=== PATIENT | female | born 1985 | race Caucasian/White ===

== ENCOUNTER 2020-09-07 21:08 | Emergency (ER) | payer MEDICAID, SELFPAY ==
[2020-09-07 21:24] VITALS: BP 153/102; PULSE 89; RESP 17; TEMP 37.2; O2SAT 98; BMI 27.4
--- NOTE | 2020-09-07 23:35 | XRR_ITS ---
PROCEDURE INFORMATION: Exam: XR Chest Exam date and time: 09/07/2020 11:35 PM Age: 35 years old Clinical indication: Pain; On breathing; Additional info: Cp TECHNIQUE: Imaging protocol: XR of the chest. Views: 1 view. COMPARISON: No relevant prior studies available. FINDINGS: Lungs: Unremarkable. No consolidation. Pleural spaces: Unremarkable. No pleural effusion. No pneumothorax. Heart/Mediastinum: Unremarkable. No cardiomegaly. Bones/joints: Unremarkable. XR/XR chest 1V portable [id number] IMPRESSION: No acute findings.
--- NOTE | 2020-09-07 23:36 | ECG_ITS ---
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 Measurements Intervals [place] Rate: 79 P: 56 KS: 120 QRS: 63 QRSD: 113 T: 40 QT: 378 QTc: 435 Interpretive Statements SINUS RHYTHM INCOMPLETE RIGHT BUNDLE BRANCH BLOCK [90+ ms QRS DURATION, TERMINAL R IN V1/V2, 40+ ms S IN I/aVL/V4/V5/V6] No previous ECG available for comparison Electronically Signed On 09-08-2020 15:01:13 CDT by Lewis Caldwell M.D. [email or web address] to (do) [email or web address] [id number]
[2020-09-08 00:43] LABS: Glucose Urine UA Norm (Normal); Ketones Urine Negative (Negative); Protein Urine Neg (Negative); Urine Appearance SL Hazy (CLEAR); Urine Color Yellow (Yellow); pH Urine 5 (5-7)
[2020-09-08 00:44] LABS: Add Urine Microscopic? YES; Bilirubin Urine Neg (Negative); Blood Urine Neg (Negative); Leukocyte Esterase Urine Trace (Negative); Nitrate Urine Negative (Negative); Urobilinogen Urine Norm (Negative)
--- NOTE | 2020-09-08 00:57 | W.ED.ABDPA2 ---
HPI - Abdominal Pain General: Chief Complaint: Abdominal Pain Stated Complaint: cp Time Seen by Provider: 09/07/20 23:20 History of Present Illness: HPI narrative: 35-year-old female with epigastric pain radiating into her back. She has had it for 24 hours or more. She is nauseated with the pain. She has not vomited. It seems to be worse after meals. No shortness of breath, no syncope or presyncope. The patient notes she has had a long car trip, last week some time driving back from [place]. She complains of some knee pain. MD elicited complaint: abdominal pain Pertinent past history: other Onset (ago): hour(s) Pain Consistency: constant Location: Epigastric Severity: moderate Quality: cramping and stabbing Radiation: back Migration to: no migration Exacerbating factors: eating Relieving factors: nothing Associated Symptoms: Denies bloating, change in bowel habits, GI cramping and fever(s) Treatments prior to arrival: NSAIDs Related Data: Date of Last Menstrual Period: 08/31/20 Review of Systems Const: Denies: fever(s) Eyes: Denies: change in vision ENMT: Denies: throat pain Card: Denies: chest pain or palpitations Resp: Denies: dyspnea GI: Denies: bloating, GI cramping or change in bowel habits Neuro: Reports: headache(s); Denies: numbness in extremities [facility] Female Reproductive History: Date of last menstrual period: 08/31/20 Physical Exam Const: GENERAL APPEARANCE: well developed ORIENTATION/CONSCIOUSNESS: Yes oriented to person, Yes oriented to place and Yes oriented to time HENMT: COMMON NORMALS: normocephalic, external ears normal and Normal external nose present HEAD & SCALP: normocephalic FACE & SINUS: normal facial exam NOSE: Normal external nose present and No nasal discharge present EXTERNAL EAR: Yes external ears normal THROAT: posterior oropharynx normal; no peritonsillar mass Eye: COMMON NORMALS: EOMs intact bilaterally and conjunctivae normal EYELID: eyelids normal CONJUNCTIVA: Yes conjunctivae normal Neck/C-Spine: COMMON NORMALS: full ROM GENERAL: No tracheal deviation CERVICAL SPINE: Yes normal cervical lordosis and No Cervical spine tenderness Chest: COMMONS NORMALS: normal inspection of the chest CHEST: No tenderness Resp: COMMON NORMALS: clear to auscultation bilaterally EFFORT & INSPECTION: No tachypneic, No respiratory distress, No retractions, No uses accessory muscles and No tracheal deviation AUSCULTATION: clear to auscultation bilaterally, no rhonchi, no wheezes and lung sounds not diminished Cardio: COMMON NORMALS: regular rate and regular rhythm RATE: regular rate RHYTHM: regular rhythm HEART SOUNDS: no murmurs PERIPHERAL PULSES: radial pulses present GI: INSPECTION: No abdominal distension AUSCULTATION: No Hyperactive bowel sounds present and No Hypoactive bowel sounds present PALPATION: Yes Tenderness to palpation present (GI) (Epigastric), No Guarding due to palpation present (GI) and No Rigid due to palpation PERCUSSION: no dullness to percussion and no tympanic to percussion : COMMON NORMALS: Yes no CVA tenderness BLADDER/KIDNEY EXAM: Yes no CVA tenderness Back/Pelvis: COMMON NORMALS: no CVA tenderness Neuro: SENSORIUM/ORIENTATION: Yes oriented to person, Yes oriented to place and Yes oriented to time Psych: COMMON NORMALS: mental status grossly normal Skin: COMMON NORMALS: no rashes or lesions noted GENERAL SKIN EXAM: no rashes or lesions noted Course Vital Signs: Vital signs: Vital Signs Temperature 99.0 F 09/07/20 21:24 Pulse Rate 70 09/08/20 05:13 Respiratory Rate 16 09/08/20 05:13 Blood Pressure 102/72 09/08/20 05:13 Pulse Oximetry 95 09/08/20 05:13 MDM - Abdominal Pain MDM Narrative: Medical decision making narrative: 35-year-old female with epigastric pain. White blood cell count is 11.3. Initial troponin was minimally elevated. It did not raise at 2 hours. EKG was normal sinus rhythm without any acute ST changes. Chest x-ray was normal. D-dimer, however, was 1400. CTA was ordered and is negative for pulmonary embolism or infiltrate. CT of the belly for follow-through is negative as well. She had some relief with GI cocktail. We will treat her for gastritis. Lab Data: Labs: Lab Results 09/08/20 09/08/20 09/08/20 Range/Units 00:36 01:15 01:15 WBC 11.3 H (4.0-10.0) 10^3/ uL RBC 5.01 (4.1-5.3) 10^6/u L Hgb 14.6 (11.5-15.3) g/dL Hct 42.6 (37.0-47.0) % MCV 85.0 (81-99) fL MCH 29.1 (28.0-34.0) pg MCHC 34.3 (30.0-36.0) g/dL RDW 11.5 L (12.1-15.1) % Plt Count 363 (130-400) 10^3/c mm MPV 9.3 (7.4-10.4) fL Neut % (Auto) 48.3 % Lymph % (Auto) 38.5 % [place] % (Auto) 5.1 % Eos % (Auto) 7.1 % Baso % (Auto) 0.6 % Neut # (Auto) 5.46 (1.8-7.7) 10^3/u L Lymph # (Auto) 4.4 (0.8-4.8) 10^3/u L [place] # (Auto) 0.6 (0.2-0.9) 10^3/u L Eos # (Auto) 0.8 (0.0-0.8) 10^3/u L Baso # (Auto) 0.1 (0.0-0.1) 10^3/u L Nucleated RBC % (a uto) 0 % Nucleated RBCs # 0.0 /100WBC D-Dimer 1.41 H (0-0.59) ug/mIFE U Sodium (136-145) mmol/L Potassium (3.5-5.1) mmol/L Chloride (98-107) mmol/L Carbon Dioxide (22-29) mmol/L Anion Gap (5-19) BUN (6-20) mg/dL Creatinine (0.5-0.9) mg/dL GFR Calculation (90-130) mL/min Glucose (65-115) mg/dL Calculated Osmolal ity (285-295) mOsm/k g Calcium (8.5-10.5) mg/dL Total Bilirubin (0.15-1.2) mg/dL AST (0-32) U/L ALT (0-33) U/L Alkaline Phosphata se (35-105) IU/L Creatine Kinase (26-192) U/L Troponin T Gen 5 n g/L (0-10) ng/L C-Reactive Protein (0.0-4.9) mg/L Total Protein (6.6-8.7) g/dL Albumin (3.5-5.2) g/dL Globulin (1.3-4.6) g/dL Lipase (13-60) U/L HCG, Qual (Negative) Urine Color Yellow (Yellow) Urine Appearance Sl hazy (CLEAR) Urine pH 5 (5-7) Ur Specific Gravit y 1.020 (1.005-1.030) Urine Protein Neg (Negative) Urine Glucose (UA) Norm (Normal) Urine Ketones Negative (Negative) Urine Blood Neg (Negative) Urine Nitrate Negative (Negative) Urine Bilirubin Neg (Negative) Urine Urobilinogen Norm (Negative) mg/dL Ur Leukocyte Almita ase Trace H (Negative) Urine RBC 0-4 H (0-2) /hpf Urine WBC 0-4 H (0-5) /hpf Ur Squamous Epith Cells 25-40 H (0-5) /hpf Amorphous Sediment Not Reportable Urine Bacteria Trace (NONE) /hpf 09/08/20 09/08/20 09/08/20 Range/Units 01:15 01:15 01:15 WBC (4.0-10.0) 10^3/ uL RBC (4.1-5.3) 10^6/u L Hgb (11.5-15.3) g/dL Hct (37.0-47.0) % MCV (81-99) fL MCH (28.0-34.0) pg MCHC (30.0-36.0) g/dL RDW (12.1-15.1) % Plt Count (130-400) 10^3/c mm MPV (7.4-10.4) fL Neut % (Auto) % Lymph % (Auto) % [place] % (Auto) % Eos % (Auto) % Baso % (Auto) % Neut # (Auto) (1.8-7.7) 10^3/u L Lymph # (Auto) (0.8-4.8) 10^3/u L [place] # (Auto) (0.2-0.9) 10^3/u L Eos # (Auto) (0.0-0.8) 10^3/u L Baso # (Auto) (0.0-0.1) 10^3/u L Nucleated RBC % (a uto) % Nucleated RBCs # /100WBC D-Dimer (0-0.59) ug/mIFE U Sodium 138 (136-145) mmol/L Potassium 4.3 (3.5-5.1) mmol/L Chloride 103 (98-107) mmol/L Carbon Dioxide 22 (22-29) mmol/L Anion Gap 17.3 (5-19) BUN 11 (6-20) mg/dL Creatinine 0.8 (0.5-0.9) mg/dL GFR Calculation 82.6 L (90-130) mL/min Glucose 83 (65-115) mg/dL Calculated Osmolal ity 285 (285-295) mOsm/k g Calcium 9.3 (8.5-10.5) mg/dL Total Bilirubin 0.2 (0.15-1.2) mg/dL AST 18 (0-32) U/L ALT 26 (0-33) U/L Alkaline Phosphata se 53 (35-105) IU/L Creatine Kinase 59 (26-192) U/L Troponin T Gen 5 n g/L 12 H (0-10) ng/L C-Reactive Protein 1.0 (0.0-4.9) mg/L Total Protein 6.9 (6.6-8.7) g/dL Albumin 4.4 (3.5-5.2) g/dL Globulin 2.5 (1.3-4.6) g/dL Lipase 52 (13-60) U/L HCG, Qual Negative (Negative) Urine Color (Yellow) Urine Appearance (CLEAR) Urine pH (5-7) Ur Specific Gravit y (1.005-1.030) Urine Protein (Negative) Urine Glucose (UA) (Normal) Urine Ketones (Negative) Urine Blood (Negative) Urine Nitrate (Negative) Urine Bilirubin (Negative) Urine Urobilinogen (Negative) mg/dL Ur Leukocyte Almita ase (Negative) Urine RBC (0-2) /hpf Urine WBC (0-5) /hpf Ur Squamous Epith Cells (0-5) /hpf Amorphous Sediment Urine Bacteria (NONE) /hpf 09/08/20 Range/Units 03:57 WBC (4.0-10.0) 10^3/ uL RBC (4.1-5.3) 10^6/u L Hgb (11.5-15.3) g/dL Hct (37.0-47.0) % MCV (81-99) fL MCH (28.0-34.0) pg MCHC (30.0-36.0) g/dL RDW (12.1-15.1) % Plt Count (130-400) 10^3/c mm MPV (7.4-10.4) fL Neut % (Auto) % Lymph % (Auto) % [place] % (Auto) % Eos % (Auto) % Baso % (Auto) % Neut # (Auto) (1.8-7.7) 10^3/u L Lymph # (Auto) (0.8-4.8) 10^3/u L [place] # (Auto) (0.2-0.9) 10^3/u L Eos # (Auto) (0.0-0.8) 10^3/u L Baso # (Auto) (0.0-0.1) 10^3/u L Nucleated RBC % (a uto) % Nucleated RBCs # /100WBC D-Dimer (0-0.59) ug/mIFE U Sodium (136-145) mmol/L Potassium (3.5-5.1) mmol/L Chloride (98-107) mmol/L Carbon Dioxide (22-29) mmol/L Anion Gap (5-19) BUN (6-20) mg/dL Creatinine (0.5-0.9) mg/dL GFR Calculation (90-130) mL/min Glucose (65-115) mg/dL Calculated Osmolal ity (285-295) mOsm/k g Calcium (8.5-10.5) mg/dL Total Bilirubin (0.15-1.2) mg/dL AST (0-32) U/L ALT (0-33) U/L Alkaline Phosphata se (35-105) IU/L Creatine Kinase (26-192) U/L Troponin T Gen 5 n g/L 11 H (0-10) ng/L C-Reactive Protein (0.0-4.9) mg/L Total Protein (6.6-8.7) g/dL Albumin (3.5-5.2) g/dL Globulin (1.3-4.6) g/dL Lipase (13-60) U/L HCG, Qual (Negative) Urine Color (Yellow) Urine Appearance (CLEAR) Urine pH (5-7) Ur Specific Gravit y (1.005-1.030) Urine Protein (Negative) Urine Glucose (UA) (Normal) Urine Ketones (Negative) Urine Blood (Negative) Urine Nitrate (Negative) Urine Bilirubin (Negative) Urine Urobilinogen (Negative) mg/dL Ur Leukocyte Almita ase (Negative) Urine RBC (0-2) /hpf Urine WBC (0-5) /hpf Ur Squamous Epith Cells (0-5) /hpf Amorphous Sediment Urine Bacteria (NONE) /hpf Discharge Plan Discharge Patient Disposition: Home Clinical Impression: Gastritis Qualifiers: Gastritis type: unspecified gastritis Chronicity: acute Gastritis bleeding: without bleeding Qualified Code(s): K29.00 - Acute gastritis without bleeding Condition: Stable Prescriptions: New Zofran 4 mg tablet 4 mg PO Q6H PRN (Reason: nausea and vomiting) Qty: 10 RF: 0 Prevacid 30 mg capsule,delayed release(DR/EC) 30 mg PO DAILY Qty: 30 RF: 0 Discharge Orders: Discharge ED (Routine); Ordered 09/08/20 Ordered By: Shane Garcia Referrals: Robbin Valente MD [Primary Care Provider] - 1-3 days Patient Instructions: Gastritis (ED) Activity Restrictions/Additional Instructions: Return for fever greater than 100, vomiting liquids or medications, worsening pain despite treatment, other concerning symptoms peer Coding Level of Care Code ED Attending Anesthesiologist for Chg Fwd Exam Comprehensive
[2020-09-08 00:58] LABS: RBC Urine 0-4 /hpf (0-2); Squamous Epithelial Cell Urine 25-40 /hpf (0-5); WBC Urine 0-4 /hpf (0-5)
[2020-09-08 00:59] LABS: Add Urine Culture? No; Bacteria Urine TRACE /hpf
[2020-09-08 01:27] VITALS: BP 108/85; PULSE 66; RESP 22; O2SAT 99
[2020-09-08] MEDS: lidocaine 2% viscous 15 ML, aluminum-mag hydrox-simethicon 30 ML, sucralfate oral liq 1 GM PO (01:35)
[2020-09-08] MEDS: ondansetron 2 mg/ML SDV 2 mL 4 MG IVP ×2 (01:36→04:25)
[2020-09-08] MEDS: sodium chloride 0.9% 1,000 ML 999 ML IV (01:36)
[2020-09-08 01:48] LABS: Basophils # 0.1 10^3/uL (0.0-0.1); Basophils % 0.6 %; Eosinophils # 0.8 10^3/uL (0.0-0.8); Eosinophils % 7.1 %; Hematocrit 42.6 % (37.0-47.0); Hemoglobin 14.6 g/dL (11.5-15.3); Lymphocytes # 4.4 10^3/uL (0.8-4.8); Lymphocytes % 38.5 %; Mean Corpuscular HGB Conc 34.3 g/dL (30.0-36.0); Mean Corpuscular Hemoglobin 29.1 pg (28.0-34.0); Mean Platelet Volume 9.3 fL (7.4-10.4); Monocytes # 0.6 10^3/uL (0.2-0.9); Monocytes % 5.1 %; Neutrophils # 5.46 10^3/uL (1.8-7.7); Neutrophils % 48.3 %; Nucleated Red Blood Cells % 0 %; Platelet Count 363 10^3/cmm (130-400); Red Blood Count 5.01 10^6/uL (4.1-5.3); Red Cell Distribution Width 11.5 % (12.1-15.1); White Blood Count 11.3 10^3/uL (4.0-10.0)
[2020-09-08 01:57] LABS: HCG, Serum Qual Negative (Negative)
[2020-09-08 02:00] VITALS: BP 105/78; PULSE 63; RESP 18; O2SAT 97
[2020-09-08 02:02] LABS: D Dimer 1.41 ug/mIFEU (0-0.59)
[2020-09-08 02:09] LABS: Troponin T (5th) Once 12 ng/L (0-10)
--- NOTE | 2020-09-08 02:29 | CTR_ITS ---
PROCEDURE INFORMATION: Exam: CTA Chest With Contrast Exam date and time: 09/08/2020 2:29 AM Age: 35 years old Clinical indication: Abdominal pain; Epigastric; Prior surgery; Surgery date: 6+ months; Surgery type: Appy; Additional info: Epigastric/chest pain TECHNIQUE: Imaging protocol: Computed tomographic angiography of the chest with contrast. 3D rendering (Not supervised by radiologist): MIP and/or 3D reconstructed images were created by the technologist. Radiation optimization: All CT scans at this facility use at least one of these dose optimization techniques: automated exposure control; mA and/or kV adjustment per patient size (includes targeted exams where dose is matched to clinical indication); or iterative reconstruction. Contrast material: OMNI 350; Contrast volume: 95 ml; Contrast route: INTRAVENOUS (IV); COMPARISON: CR (CHEST, ) 09/07/2020 11:43 PM RADIATION DOSE METRICS: Total DLP (mGy-cm): 1489.22 FINDINGS: Pulmonary arteries: No pulmonary embolism. Aorta: No aortic dissection. Lungs: Unremarkable. No consolidation. No masses. Pleural spaces: Unremarkable. No pneumothorax. No pleural effusion. Heart: Unremarkable. No cardiomegaly. No pericardial effusion. Mediastinal space: Thymic remnant, normal for age. Lymph nodes: Unremarkable. No enlarged lymph nodes. Bones/joints: Unremarkable. No acute fracture. Soft tissues: Unremarkable. IMPRESSION: No pulmonary embolism. PROCEDURE INFORMATION: Exam: CT Abdomen And Pelvis With Contrast Exam date and time: 09/08/2020 2:29 AM Age: 35 years old Clinical indication: Abdominal pain; Epigastric; Prior surgery; Surgery date: 6+ months; Surgery type: Appy; Additional info: Epigastric/chest pain TECHNIQUE: Imaging protocol: Computed tomography of the abdomen and pelvis with contrast. Radiation optimization: All CT scans at this facility use at least one of these dose optimization techniques: automated exposure control; mA and/or kV adjustment per patient size (includes targeted exams where dose is matched to clinical indication); or iterative reconstruction. Contrast material: OMNI 350; Contrast volume: 95 ml; Contrast route: INTRAVENOUS (IV); COMPARISON: CR (CHEST, ) 09/07/2020 11:43 PM RADIATION DOSE METRICS: Total DLP (mGy-cm): 1489.22 FINDINGS: Lungs: The lung bases are clear. No effusion Liver: Normal. No mass. Gallbladder and bile ducts: No wall thickening, pericholecystic fluid or stones. Pancreas: Normal. No ductal dilation. Spleen: Normal. No splenomegaly. Adrenal glands: Normal. No mass. Kidneys and ureters: Normal. No hydronephrosis. Stomach and bowel: Unremarkable. No obstruction. No mucosal thickening. Appendix: Appendix has been removed. Intraperitoneal space: Unremarkable. No free air. No significant fluid collection. Vasculature: Unremarkable. No abdominal aortic aneurysm. Lymph nodes: Unremarkable. No enlarged lymph nodes. Urinary bladder: Unremarkable as visualized. Reproductive: Unremarkable as visualized. Bones/joints: Unremarkable. No acute fracture. Soft tissues: Unremarkable. CT/CT angio chest w abd pel wo/w IMPRESSION: No cause for acute pain is identified. Radiation Dose CTDIVOL = (mGy): DLP = 1489.22~1489.22 (mGy-cm)
[2020-09-08 02:35] LABS: Alanine Aminotransferase 26 U/L (0-33); Albumin Level 4.4 g/dL (3.5-5.2); Alkaline Phosphatase 53 IU/L (35-105); Anion Gap 17.3 (5-19); Aspartate Amino Transferase 18 U/L (0-32); Blood Urea Nitrogen 11 mg/dL (6-20); Calcium 9.3 mg/dL (8.5-10.5); Carbon Dioxide 22 mmol/L (22-29); Chloride 103 mmol/L (98-107); Creatine Phosphokinase 59 U/L (26-192); Globulin 2.5 g/dL (1.3-4.6); Glomerular Filtration Rate 82.6 mL/min (90-130); Glucose 83 mg/dL (65-115); Lipase 52 U/L (13-60); Osmolality Calculated 285 mOsm/kg (285-295); Potassium 4.3 mmol/L (3.5-5.1); Sodium 138 mmol/L (136-145); Total Bilirubin 0.2 mg/dL (0.15-1.2); Total Protein 6.9 g/dL (6.6-8.7)
[2020-09-08] MEDS: iohexol 350 mg/mL 100 mL Btl IV (02:56)
[2020-09-08 04:30] LABS: Troponin T (5th) Once 11 ng/L (0-10)
[2020-09-08 04:35] VITALS: RESP 18; O2SAT 99
[2020-09-08] MEDS: morphine 4 mg/mL SDV 1 mL IVP (04:35)
[2020-09-08 05:13] VITALS: BP 102/72; PULSE 70; RESP 16; O2SAT 95
[2020-09-08 06:08] VITALS: BP 102/72; PULSE 71; RESP 14; O2SAT 96
== END 2020-09-08 06:00 | disposition home or self-care (01) ==
PROVIDERS: Emergency Provider Emergency Medicine; PCP Family Medicine
DX: K29.00 Acute gastritis without bleeding (principal)
CPT/HCPCS: 36415; 71045; 71275; 74178; 80053; 81001; 82550; 83690; 84484; 84703; 85025; 85378; 86140; 93005; 96361; 96374; 96375; 96376; 99284; J2270; J2405; J7030; Q9967

== ENCOUNTER → 2021-02-03 11:48 | Outpatient (BNVA) | payer MEDICAID, SELFPAY | PROVIDERS: PCP Family Medicine; Visit Provider Registered Nurse Neonatal Intensive Care | DX: Z20.822 Contact with and (suspected) exposure to COVID-19 (principal) | CPT/HCPCS: 87635 ==

== ENCOUNTER → 2021-03-27 18:34 | Outpatient (BNVA) | payer MEDICAID, SELFPAY | PROVIDERS: PCP Family Medicine; Visit Provider Nurse Practitioner | DX: R39.9 Unspecified symptoms and signs involving the genitourinary system (principal) | CPT/HCPCS: 81000 ==

== ENCOUNTER → 2021-09-19 08:51 | Outpatient (BNVA) | payer MEDICAID, SELFPAY | PROVIDERS: PCP Family Medicine; Visit Provider Obstetrics & Gynecology | DX: Z01.419 Encounter for gynecological examination (general) (routine) without abnormal findings (principal) | CPT/HCPCS: 87624 ==

== ENCOUNTER 2021-11-12 05:32 | Day surgery (SDC) | payer MEDICAID, SELFPAY ==
[2021-11-12] VITALS (7 sets, daily range): BP systolic 106–145; BP diastolic 67–86; PULSE 64–88; RESP 16–18; TEMP 36.1–36.2; O2SAT 95–100
--- NOTE | 2021-11-12 06:15 | ANES.PREANE2 ---
Pre-Anesthetic Assessment Height/Weight: Height 1.57 m Weight 68.039 kg Temp Pulse Resp BP Pulse Ox O2 Del Method 97.2 F L 80 18 128/86 98 11/12/21 06:00 11/12/21 06:00 11/12/21 06:00 11/12/21 06:00 11/12/21 06:00 11/12/21 06:07 Preop Diagnosis: desires sterilization Operation Date: 11/12/21 07:00 Proposed Procedures p Laparoscopic Salpingectomy 40862,Z30.2(Bilateral) - Melinda Stapleton MD Familial anesthetic complications: None Was Beta Saranya taken within 24 hours: N/A Was Clonidine taken within 24 hours: N/A Last intake: Intake Last Liquid Date 11/11/21 Last Liquid Time 19:00 Last Solid Date 11/11/21 Last Solid Time 19:00 Social Tobacco and No alcohol Exam alert, oriented x 3, clear to auscultation bilaterally and regular rate & rhythm Airway Submandibular: within normal limits Cervical ROM: within normal limits Mallampati: Class I Dentition: full History/ROS No significant complaints Pulmonary Allergic rhinitis CV/HEM None reported METS > 4 Uterine prolapse Hepatic None reported GI Gastroesophageal Reflux Disease (Occasional reflux on empty stomach ) Metabolic None reported Musc/skel None reported Neuropsych None reported Anesthetic Plan ASA status: 2 Anesthesia: Anesthesia Evaluation and General Other: We discussed risk and benefits of general anesthesia including PONV, sore throat (sometimes severe), corneal abrasion, positioning and peripheral nerve injuries, life threatening allergic reaction, post operative ICU admission requiring prolonged intubation, stroke, heart attack, , and rare incidences of recall. Patient consents to proceed with general anesthesia. Pre op scopolamine, diphenhydramine, famotidine ordered. Risk of > 500 ml blood loss (7ml/kg in children): No Medications/Allergies Home Medications Medication Instructions Recorded Confirmed Last Taken Type fluticasone propionate 50 2 spray intranasal BID nasal 09/26/21 11/11/21 Unknown Rx mcg/actuation nasal congestion #16 grams spray,suspension loratadine 10 mg tablet 10 mg PO DAILY allergy symptoms 09/26/21 11/11/21 Unknown Rx #30 tabs Allergies Allergy/AdvReac Type Severity Reaction Status Date / Time morphine Allergy Mild ADR-Anxiety Verified 11/08/21 08:00 Penicillins Allergy ALGY-Rash Verified 11/08/21 08:00 [facility] Anesthesia Medical History Allergic rhinitis due to allergen No pertinent past medical history Surgical History History of appendectomy History of tonsillectomy Family History Grandmother Breast cancer Paternal Grandfather Heart disease Maternal Hypercholesteremia Denies family history of Colon cancer Ovarian cancer Uterine cancer Thyroid disease Social History Smoking and tobacco status: current every day smoker Female Reproductive History Date of last menstrual period: 10/27/21 Data Anesthesia Cardiac Studies: No Data to Display
[2021-11-12] MEDS: sodium chloride 0.9% 1,000 ML 30 ML IV (06:30)
[2021-11-12] MEDS: acetaminophen 1,000 MG/100 ML PIGGYBACK 400 MG IV (06:32)
[2021-11-12] MEDS: phenazopyridine 100 mg Tablet 200 MG PO (06:32)
[2021-11-12] MEDS: gabapentin 300 mg Capsule PO (06:33)
[2021-11-12] MEDS: CELEcoxib 200 mg Capsule 400 MG PO (06:33)
[2021-11-12 06:42] LABS: OR HCG Qualitative Urine Negative (Negative)
[2021-11-12] MEDS: famotidine 20 mg/2 mL INJ IVP (06:54)
[2021-11-12] MEDS: diphenhydrAMINE 50 mg/mL SDV 1mL 12.5 MG IVP (06:56)
[2021-11-12] MEDS: scopolamine 1.5 Patch 1 PATCH TRANSDERMA (06:57)
--- NOTE | 2021-11-12 07:09 | W.PM.OPSUD ---
Surgery/Procedure H&P Update DATE OF PROCEDURE: November 12, 2021 DATE H&P PERFORMED: 11/08/21 H&P UPDATE INFORMATION: I have reviewed H&P completed within last 30 days, I have examined patient prior to procedure and No changes to prior documentation PREOP DIAGNOSIS: desires sterilization PLANNED PROCEDURE: Operation Date: 11/12/21 07:00 Proposed Procedures p Laparoscopic Salpingectomy 66008,Z30.2(Bilateral) - Melinda Stapleton MD Related Problem List Diagnoses (1) Sterilization consult:
[2021-11-12] MEDS: ceFAZolin 2,000 MG in sodium chloride 0.9% (plus) 50 ML 100 MG IV (07:12)
--- NOTE | 2021-11-12 08:42 | PM.OP ---
Operative Report Date of procedure: November 12, 2021 Pre-op diagnosis: Preop Diagnosis desires sterilization Post-op diagnosis: same Post-op findings: normal appearing uterus, tubes and ovaries. Several small paratubal cysts on right fallopian tube Procedure done: laparoscopic bilateral salpingectomy Specimens removed/disposition: bilateral fallopian tubes sent to pathology Surgeon: Melinda Stapleton Anesthesia: General Estimated blood loss (mL): 5 IV fluids (mL): 700 Urine output (mL): 150 Complications: none Findings: 7 week sized uterus with normal appearing tubes and ovaries Procedure: The patient was taken to the operating room where general anesthesia was administered and found to be adequate. She was prepped and draped in the normal sterile fashion in the dorsal lithotomy position in [facility]. A Tom catheter was placed. A weighted speculum was placed into the vagina and the anterior lip of the cervix grasped with a single-tooth tenaculum. A ZUMI uterine manipulator was placed. The gloves were changed and attention was turned to the laparoscopic portion of the case. A 5 mm infraumbilical incision was made. The 5 mm trocar was placed using the easy view trocar. Intra-abdominal placement was confirmed and CO2 gas was used to insufflate the abdomen. Using direct visualization and illumination of the abdominal wall, two 5 mm incisions were made low and lateral. One on the left and one on the right. The 5mm trochars were then placed under direct visualization. Using the uterine manipulator and the grasper, the fallopian tubes were identified. Using the laparoscopic cautery, the fallopian tube was clamped cauterized and cut. First on the right, then on the left. There was excellent hemostasis post removal of the bilateral tubes. Pictures were taken. All instruments were removed. The abdomen was desufflated. The incisions were closed with 4-0 Vicryl. 10 ml of 1/2 percent bupivicaine was used around the three incisions. The patient tolerated the procedure well. Sponge lap and needle counts were correct x3. She was taken to the recovery room in stable condition.
--- NOTE | 2021-11-12 09:06 | PM.DCS ---
Discharge Providers Date of Admission: 11/12/21 Date of Discharge: November 12, 2021 Attending Provider at Discharge: Melinda Stapleton MD Primary Care Provider: Robbin Valente MD Diagnoses at Discharge Discharge Diagnosis (1) Sterilization consult: Status: Acute Hospital Course Hospital Course The patient was admitted for surgery. She did well and was discharged home in stable condition. She was given #30 norco for pain management. Physical Exam Urinary Catheter Management: Tom: Cath Placed During This Visit: yes, but has since been removed by the nurse Urinary Catheter Date of Insertion: 11/12/21 Urinary Catheter Time of Insertion: 07:35 Date Urinary Catheter Removed: 11/12/21 Time Urinary Catheter Discontinued: 08:30 Discharge Data Studies Completed and Pending Pending at discharge Category Date Time Status ES surgery / GI images Routine Exams 11/12/21 06:21 Taken Urine Culture Routine Lab 11/12/21 08:00 Received Pathology: Surgical [PTH] Routine Pth 11/12/21 08:44 Ordered Laboratory Results Urine HCG, Qual Negative (Negative) 11/12/21 06:40 Vitals Last Vital Signs Temp 97.1 F L 11/12/21 09:03 Pulse 78 11/12/21 09:03 Resp 18 11/12/21 09:03 BP 106/75 11/12/21 09:03 Pulse Ox 98 11/12/21 09:03 O2 Del Method 11/12/21 09:03 O2 Flow Rate 8 11/12/21 08:45 Discharge Plan Discharge Patient Disposition: Home Condition: Stable Prescriptions: New hydrocodone-acetaminophen 5-325 mg tablet 1 tab PO Q4H Qty: 30 0RF Continued loratadine 10 mg tablet 10 mg PO DAILY Qty: 30 0RF fluticasone propionate 50 mcg/actuation spray,suspension 2 spray intranasal BID Qty: 16 1RF Rx Instructions: administer into each nostril Discharge Orders: Discharge Order (Routine); Ordered 11/12/21 Ordered By: Melinda Stapleton Discharge Attestations Time Spent in Discharge Care*: less than 30 min Quality Metrics Clinical Quality Measures [ No reported AMI, CVA or VTE this stay] Coding Level of Care Code Acute Chg FW DC note Diagnoses Sterilization consult Z30.09
[2021-11-12] MEDS: ondansetron 2 mg/ML SDV 2 mL 4 MG IVP (09:30)
--- NOTE | 2021-11-12 10:35 | ANE.PACU2 ---
Inpatient post-anesthesia follow up: Airway intact: Yes Vital signs: Temperature 97.1 F Pulse Rate 64 Respiratory Rate 18 Blood Pressure 110/69 Pulse Oximetry 98 Oxygen Delivery Me thod Room Air Oxygen Flow Rate 8 Fraction of Inspir ed Oxygen Hydration adequate: Yes Nausea and vomiting: No Pain level: 1 Mental status: Baseline
== END 2021-11-12 09:50 | disposition home or self-care (01) ==
PROVIDERS: Anesthesiology; PCP Family Medicine; Visit Provider Obstetrics & Gynecology
PROC: (CPT 58661; principal; 2021-11-12 07:00)
DX: Z30.2 Encounter for sterilization (principal); K21.9 Gastro-esophageal reflux disease without esophagitis; F17.210 Nicotine dependence, cigarettes, uncomplicated
CPT/HCPCS: 58661; 84703; 87086; 88302; J0330; J1100; J1200; J1885; J2250; J2405; J2704; J2710; J3010; J3490; J7030

== ENCOUNTER → 2022-02-05 11:31 | Outpatient (BNVA) | payer MEDICAID, SELFPAY | PROVIDERS: PCP Family Medicine; Visit Provider Clinical Nurse Specialist Adult Health | DX: J06.9 Acute upper respiratory infection, unspecified (principal); J20.6 Acute bronchitis due to rhinovirus | CPT/HCPCS: 87400 ==

== ENCOUNTER 2022-05-02 10:06 | Outpatient (CLI) | payer MEDICAID, SELFPAY ==
--- NOTE | 2022-05-02 10:28 | XR_ITS ---
WS: [id number] XR shoulder RT min 2V* [id number] REASON FOR EXAM: Right shoulder pain FINDINGS: No fracture or focal bone lesion. Mild narrowing of the acromioclavicular joint with mild subchondral sclerosis. Glenohumeral joint is intact without significant narrowing. No soft tissue abnormality. XR/XR shoulder RT min 2V* [id number] IMPRESSION: Mild osteoarthritis of the acromioclavicular joint.
--- NOTE | 2022-05-02 10:28 | XR_ITS ---
WS: [id number] XR chest 2V* [id number] REASON FOR EXAM: Cough FINDINGS: The heart and mediastinum are within normal limits. The heart and mediastinum are within normal limits. No active pulmonary parenchymal or pleural disease is identified. Minimal change of degenerative spondylosis in the mid and lower thoracic spine. XR/XR chest 2V* [id number] IMPRESSION: No acute chest abnormality.
== END 2022-05-02 10:07 | disposition home or self-care (01) ==
LOC: RAD 10:10
PROVIDERS: PCP Family Medicine; Visit Provider Family Medicine
DX: Z51.81 Encounter for therapeutic drug level monitoring (principal); R05.9 Cough, unspecified; M25.511 Pain in right shoulder; M19.011 Primary osteoarthritis, right shoulder; Z13.220 Encounter for screening for lipoid disorders; Z01.419 Encounter for gynecological examination (general) (routine) without abnormal findings; R53.83 Other fatigue; R53.81 Other malaise
CPT/HCPCS: 71046; 73030; 80053; 80061; 84443; 85025; 87624

== ENCOUNTER 2022-07-17 11:47 | Emergency (ER) | payer MEDICAID, SELFPAY ==
[2022-07-17 12:13] VITALS: BP 121/87; PULSE 81; RESP 18; TEMP 36.2; O2SAT 99; BMI 32.1
--- NOTE | 2022-07-17 12:49 | W.ED.HA ---
HPI - Headache General: Chief Complaint: Headache Stated Complaint: Headache Time Seen by Provider: 07/17/22 12:25 Source: patient Mode of arrival: ambulatory Limitations: no limitations History of Present Illness: Patient is a nice 37-year-old female presents to ED today with complaint of headache. Patient states she first noticed the headache about 1.5 weeks ago after returning from [place]. Patient states when she returned she had also noticed some mild swelling to both of her legs that she attributed to possibly the long plane ride. This symptom has fully resolved. She states her headache is intermittent and seems to be located to her left occipital region that seems to radiate into her left retro-orbital region. No visual loss or visual changes. She states she does have a history of headaches/migraines but has not had one in many years and states this feels different. She is not having any neck pain or neck stiffness. No fevers. She has no neurologic complaints or deficits. She denies any poor or abnormal food exposures while in [place]. She denies swimming in dirty or stagnant ross. MD elicited complaint: headache Onset (ago): week(s) (1.5 weeks ago) Onset description: gradually Location: left and occipital Severity: moderate Quality & Timing: sharp Exacerbating factors: none Relieving factors: nothing Associated symptoms: Deny chest pain, confusion, fever(s), lightheadedness, malaise, nausea, pre-syncope, rash, syncope or vomiting Treatments prior to arrival: acetaminophen, ibuprofen and other ([facility] IM meds) Review of Systems Const: Denies: fever(s), chills, body aches, fatigue or malaise Eyes: Denies: change in vision, blurry vision, photophobia, floaters or seeing flashes ENMT: Denies: throat pain, odynophagia, ear or mastoid pain, nasal discharge or nasal congestion Card: Denies: chest pain, palpitations, edema, swelling of feet/ankles, lightheadedness, syncope, pre-syncope, dyspnea on exertion or orthopnea Resp: Denies: dyspnea GI: Denies: abdominal pain, nausea, vomiting or diarrhea Musc: Denies: neck pain, back pain, extremity pain or joint pain Skin/Breast: Denies: rash Neuro: Reports: headache(s); Denies: numbness in extremities, weakness in extremities, sensory changes, difficulty walking, dizziness, confusion, behavioral changes, Slurred speech present or seizure-like activity PFSH ED PFSH: Medical History Allergic rhinitis due to allergen No pertinent past medical history Sterilization consult Surgical History History of appendectomy History of tonsillectomy Hx of tubal ligation Family History Grandmother Breast cancer Paternal Grandfather Heart disease Maternal Hypercholesteremia Denies family history of Colon cancer Ovarian cancer Uterine cancer Thyroid disease Social History Smoking and tobacco status: current every day smoker e-cigarettes E-Cigarette Details: vaporizer device Physical Exam Const: COMMON NORMALS: no acute distress, average body habitus, patient oriented x3, no limitations, healthy appearing, alert and well nourished GENERAL APPEARANCE: cooperative ORIENTATION/CONSCIOUSNESS: Yes awake, Yes oriented to person, Yes oriented to place and Yes oriented to time HENMT: COMMON NORMALS: normocephalic, atraumatic, hearing grossly normal bilaterally, external ears normal, EAC's normal, TM's normal bilaterally, Normal external nose present, Normal nasal mucous membranes and turbinates present, moist oral mucous membranes and oropharynx normal HEAD & SCALP: normal to inspection, normocephalic, atraumatic and other (TTP L occipital scalp) FACE & SINUS: normal facial exam and sinuses nontender NOSE: Normal external nose present and Normal nasal mucous membranes and turbinates present EXTERNAL EAR: Yes external ears normal EXTERNAL AUDITORY CANAL: EAC's normal TYMPANIC MEMBRANE: TM's normal bilaterally MOUTH: Normal oral and palatal mucosa present, lip normal and tongue normal THROAT: posterior oropharynx normal, tonsils normal and uvula midline Eye: COMMON NORMALS: Equal, round and reactive pupils present, EOMs intact bilaterally and conjunctivae normal GENERAL EYE: appearance normal, both eyes and all related structures CONJUNCTIVA: Yes conjunctivae normal PUPIL: Yes Equal, round and reactive pupils present Neck/C-Spine: COMMON NORMALS: full ROM, no lymphadenopathy and no meningeal signs GENERAL: Yes normal visual inspection Resp: COMMON NORMALS: normal respiratory effort and clear to auscultation bilaterally AUSCULTATION: clear to auscultation bilaterally Cardio: COMMON NORMALS: regular rate and regular rhythm RATE: regular rate RHYTHM: regular rhythm Extremity: COMMON NORMALS: normal to inspection GENERAL: Yes normal exam except as noted Neuro: ROSA COMA SCALE: document GCS findings [place] coma scale eye opening: Spontaneous Rosa coma scale verbal response: Orientated [place] coma scale motor response: Obey commands Rosa coma scale total score: 15 COMMON NORMALS: patient oriented x3, CN's II-XII intact bilaterally, moves all extremities, no focal motor deficits, no sensory deficits noted and gait normal SENSORIUM/ORIENTATION: Yes alert, Yes oriented to person, Yes oriented to place and Yes oriented to time MENINGEAL SIGNS: Yes no meningeal signs Skin: COMMON NORMALS: no rashes or lesions noted GENERAL SKIN EXAM: no rashes or lesions noted Course Vital Signs: Vital signs: Vital Signs Temperature 97.1 F L 07/17/22 12:13 Pulse Rate 81 07/17/22 12:13 Respiratory Rate 18 07/17/22 12:13 Blood Pressure 121/87 07/17/22 12:13 Pulse Oximetry 99 07/17/22 12:13 Oxygen Delivery Me thod Room Air 07/17/22 12:13 MDM - Headache Medical Decision Making Patient states she feels much better after IV medications here. Head CT is negative. Patient denies neck pain/stiffness or fevers or any neurologic red flags on history. Physical examination is benign. At this time I do not have any suspicion for emergent etiology for her headache. Discussed signs and symptoms that should warrant a return to ED visit. Otherwise I would like her to follow-up with primary care next week. Lab Data Radiology Impressions Head CT 07/17/22 12:57 IMPRESSION: 1. No evidence of intracranial hemorrhage or mass effect. 2. Normal guillen-white differentiation. 3. No acute intracranial findings. Discharge Plan Discharge Patient Disposition: Home Clinical Impression: Occipital headache Condition: Stable Prescriptions: No Action fluticasone propionate 50 mcg/actuation spray,suspension 2 spray intranasal BID Qty: 16 1RF Rx Instructions: administer into each nostril citalopram 10 mg tablet 10 mg PO DAILY Qty: 30 3RF omeprazole 40 mg capsule,delayed release(DR/EC) 40 mg PO DAILY Qty: 30 6RF albuterol sulfate 90 mcg/actuation HFA aerosol inhaler 2 inh inhalation QID PRN (Reason: shortness of breath or wheezing) Qty: 8.5 2RF ondansetron 4 mg tablet,disintegrating 4 mg PO Q8H PRN (Reason: nausea and vomiting) Qty: 30 0RF loratadine 10 mg tablet 10 mg PO DAILY Qty: 90 3RF Discharge Orders: Discharge ED (Routine); Ordered 07/17/22 Ordered By: Jonelle Bell Referrals: Robbin Valente MD [Primary Care Provider] - Activity Restrictions/Additional Instructions: As we discussed please follow-up with your primary care provider next week if symptoms persist. You need to return to the emergency department for onset of fevers greater than 100.4, severe neck pain or stiffness, trouble walking or speaking, facial drooping, numbness/tingling/weakness to your arms or legs, altered mental status, or any other concerns you may have. Coding Level of Care Code ED [employer] for Levar Parrish
--- NOTE | 2022-07-17 12:57 | CT_ITS ---
WS: [id number] CT HEAD TECHNIQUE: Noncontrast CT of the head obtained from the skullbase to the vertex. CLINICAL INFORMATION: CLAIRE COMPARISON: 2009 DLP: 1055.[address] scans at [facility] use at least one of these dose optimization techniques: automated e xposure control; mA and/or kV adjustment per patient size (includes targeted exams where dose is matc hed to clinical indication); or iterative reconstruction. FINDINGS: No evidence of intracranial hemorrhage or mass effect. Ventricular system and basal cisterns are barron nt. No extra-axial fluid collections. No evidence of mass or mass effect. Normal guillen-white different iation. Paranasal sinuses and mastoid air cells are well aerated. .Normal visualized soft tissues. CT/CT head wo con* [id number] IMPRESSION: 1. No evidence of intracranial hemorrhage or mass effect. 2. Normal guillen-white differentiation. 3. No acute intracranial findings.
[2022-07-17] MEDS: ondansetron 2 mg/ML SDV 2 mL 4 MG IVP (13:32)
[2022-07-17] MEDS: ketorolac 60 mg/2 mL INJ 30 MG IVP (13:33)
[2022-07-17] MEDS: dexamethasone 10 mg/mL INJ 8 MG IV (13:34)
[2022-07-17] MEDS: diphenhydrAMINE 50 mg/mL SDV 1mL IVP (13:37)
== END 2022-07-17 14:13 | disposition home or self-care (01) ==
PROVIDERS: Emergency Provider Physician Assistant; PCP Family Medicine
DX: G44.89 Other headache syndrome (principal); F17.290 Nicotine dependence, other tobacco product, uncomplicated
CPT/HCPCS: 70450; 96374; 96375; 99285; J1100; J1200; J1885; J2405

== ENCOUNTER 2023-03-01 12:38 | Emergency (ER) | payer MEDICAID, SELFPAY ==
[2023-03-01 12:52] VITALS: BP 137/93; PULSE 99; RESP 16; TEMP 36.6; O2SAT 97; BMI 33.3
[2023-03-01 13:41] VITALS: BP 133/92; PULSE 96; RESP 14; O2SAT 99
--- NOTE | 2023-03-01 13:59 | PC.PHAR ---
pt states has not taken any medication since Thursday. 03/01/23
[2023-03-01 14:15] LABS: Basophils % 0.3 %; Eosinophils # 0.2 10^3/uL (0.0-0.8); Eosinophils % 2.7 %; Hematocrit 40.2 % (36-47); Lymphocytes # 1.4 10^3/uL (0.8-4.8); Lymphocytes % 20.5 %; Mean Corpuscular HGB Conc 34.1 g/dL (30-55); Mean Corpuscular Hemoglobin 28.2 pg (27-33); Mean Corpuscular Volume 82.7 fl (85-98); Mean Platelet Volume 8.9 fL (7.4-10.4); Monocytes # 0.5 10^3/uL (0.2-0.9); Monocytes % 6.8 %; Neutrophils # 4.87 10^3/uL (1.8-7.7); Neutrophils % 69.3 %; Nucleated Red Blood Cells % 0 %; Platelet Count 269 10^3/cmm (157-399); Red Blood Count 4.86 10^6/uL (3.85-5.65); Red Cell Distribution Width 11.8 % (12.1-15.1); White Blood Count 7.03 10^3/uL (3.29-11.43)
--- NOTE | 2023-03-01 14:17 | CTR_ITS ---
PROCEDURE INFORMATION: Exam: CT Abdomen And Pelvis With Contrast Exam date and time: 03/01/2023 2:59 PM Age: 37 years old Clinical indication: Abdominal pain; Generalized TECHNIQUE: Imaging protocol: Computed tomography of the abdomen and pelvis with contrast. Axial, coronal and sagittal reformatted images were created and reviewed. Radiation optimization: All CT scans at this facility use at least one of these dose optimization techniques: automated exposure control; mA and/or kV adjustment per patient size (includes targeted exams where dose is matched to clinical indication); or iterative reconstruction. Contrast material: OMNI 350; Contrast volume: 100 ml; Contrast route: INTRAVENOUS (IV); REPORTING DATA: Count of CT and Cardiac NM exams in prior 12 months: This patient has received [address] and 0 known cardiac nuclear medicine studies in the 12 months prior to the current study. COMPARISON: CT angio chest w abd pel wo/w 09/08/2020 2:46 AM RADIATION DOSE METRICS: Total DLP (mGy-cm): 747.81 FINDINGS: Liver: Mild hepatomegaly. Mild, diffuse hepatic steatosis. Gallbladder and bile ducts: No radiodense gallstones. No biliary ductal dilatation. Pancreas: Unremarkable. Spleen: Mild splenomegaly. Adrenal glands: Normal. No mass. Kidneys and ureters: No mass. No radiodense calculi. No hydronephrosis. Stomach and bowel: No bowel wall thickening. No obstruction. No pneumatosis. Appendix: Appendix not identified with certainty but no right lower quadrant inflammatory change to suggest acute appendicitis. Intraperitoneal space: Trace nonspecific free pelvic fluid, likely physiologic. No organized fluid collection. No free air. Vasculature: Unremarkable. No aneurysm. Lymph nodes: Small mesenteric lymph nodes, nonspecific in appearance. No pathologically enlarged lymph nodes. Urinary bladder: Unremarkable as visualized. Reproductive: Probable involuting left ovarian corpus luteal cyst. Bones/joints: No acute osseous abnormality. Soft tissues: Small, fat containing umbilical hernia. CT/CT abdomen pelvis w con* [id number]: 1[address] No CT evidence of acute intra-abdominal or pelvic pathology. 2. Additional findings, as above.
--- NOTE | 2023-03-01 14:18 | W.ED.ABDPA2 ---
HPI - Abdominal Pain General: Chief Complaint: Abdominal Pain Stated Complaint: pa said galbladder issue, urgent care sent Time Seen by Provider: 03/01/23 13:22 History of Present Illness: 37-year-old female presents emergency department complaints of generalized abdominal pain. She states she was seen by urgent care and they was sent here for concerns of abdominal pain that radiates to the right side and back. She does complain of nausea as well as excessive gas and intermittent diarrhea since yesterday. She states she initially had similar complaints approximately 3 weeks ago and it got better after 1 day and she decided not to follow-up until it reoccurred yesterday. She states that right now her pain is a 6 out of 10 to the generalized abdomen and stated that it became worse today. Associated Symptoms: Reports nausea Review of Systems General: Reports: 10 or more systems reviewed and unremarkable except in HPI and below GI: Reports: abdominal pain and nausea : Reports: urinary frequency PFSH ED PFSH: Medical History Allergic rhinitis due to allergen Sterilization consult No pertinent past medical history Surgical History Hx of tubal ligation History of tonsillectomy History of appendectomy Family History Grandmother Breast cancer Paternal Grandfather Heart disease Maternal Hypercholesteremia Denies family history of Colon cancer Ovarian cancer Uterine cancer Thyroid disease Social History Smoking and tobacco/nicotine status: current every day tobacco/nicotine user e-cigarettes E-Cigarette Details: vaporizer device Physical Exam Narrative: EXAM NARRATIVE: Constitutional: the patient appears well nourished and with normal development. Vital signs reviewed as documented. HENMT: Normocephalic, atraumatic. Extermal ears with normal appearance without drainage. Nose without drainage, normal appearance. Mucus membranes moist. Neck is supple, No jugular venous distension, trachea is midline, no appreciable carotid bruits. No lymphadenopathy. No meningeal signs. Flexion, extension and lateral rotation is without pain. Eyes: Pupils are equal, round, reactive to light and accommodation. No scleral icterus. Extra-ocular movement are intact. Thorax is symmetrical and with equal rise and fall with respirations. Resp: Lungs are clear to auscultation. No wheezes, rales, crackles or ronchi at present. Cardio: Regular rate and rhythm. Positive S1, S2. No appreciable murmurs, rubs or gallops. GI: Abdominal exam reveals normal bowel sounds to all quadrants. No organomegaly. No obvious palpable masses noted. No hepatomegally appreciated. Soft, tender to palpation to the right lower and left lower as well as the right upper quadrant of the abdomen. Extremity: Extremities are non-edematous and both femoral and pedal pulses are 2+ and equal bilaterally. Moves all extremities well, sensation in all extremities. Neuro: Alert and oriented x4, person, place, time and situation. Cranial nerves II through XII are grossly intact, there is no focal neurological deficits that I can appreciate at present. Motor strength in the upper and lower extremities are equal and bilateral 5/5. Psych: Cooperative, calm, normal thought process, appropriate judgment. Skin: No lesions, rashes. No gross abnormalities noted. Back: Symmetrical, no obvious deformity, No CVA tenderness Course Vital Signs: Vital signs: Vital Signs Temperature 97.8 F 03/01/23 12:52 Pulse Rate 96 03/01/23 13:41 Respiratory Rate 14 03/01/23 13:41 Blood Pressure 133/92 03/01/23 13:41 Pulse Oximetry 99 03/01/23 13:41 Oxygen Delivery Me thod Room Air 03/01/23 13:41 MDM - Abdominal Pain Medical Decision Making Physical exam completed and documented, I will obtain laboratory evaluation to include a CBC, CMP, lipase, urinalysis, and a CT scan of the patient's abdomen pelvis to evaluate for possible differential diagnosis of pancreatitis, cholelithiasis, cholecystitis, bowel obstruction, incarcerated hernia, abdominal wall strain, abdominal wall hematoma, constipation. I will provide the patient IV access and IV fluid as well as a CT scan abdomen pelvis with contrast for evaluation for possible colitis, acute appendicitis, diverticulitis. Medical Records I reviewed the patient's medical records. Lab Data I reviewed the patient's lab results. 03/01/23 14:02 03/01/23 14:02 Labs/Radiology: Radiology Impressions Abdomen/Pelvis CT 03/01/23 14:[address]: [address] evidence of acute intra-abdominal or pelvic pathology. 2. Additional findings, as above. Laboratory Results WBC 7.03 10^3/uL (3.29-11.43) 03/01/23 14:02 RBC 4.86 10^6/uL (3.85-5.65) 03/01/23 14:02 Hgb 13.70 g/dL (11.27-16.99) 03/01/23 14:02 Hct 40.2 % (36-47) 03/01/23 14:02 MCV 82.7 fl (85-98) L 03/01/23 14:02 MCH 28.2 pg (27-33) 03/01/23 14: MCHC 34.1 g/dL (30-55) 03/01/23 14:02 RDW 11.8 % (12.1-15.1) L 03/01/23 14:02 Plt Count 269 10^3/cmm (157-399) 03/01/23 14:02 MPV 8.9 fL (7.4-10.4) 03/01/23 14:02 Neut % (Auto) 69.3 % 03/01/23 14:02 Lymph % (Auto) 20.5 % 03/01/23 14:02 [place] % (Auto) 6.8 % 03/01/23 14:02 Eos % (Auto) 2.7 % 03/01/23 14:02 Baso % (Auto) 0.3 % 03/01/23 14:02 Neut # (Auto) 4.87 10^3/uL (1.8-7.7) 03/01/23 14:02 Lymph # (Auto) 1.4 10^3/uL (0.8-4.8) 03/01/23 14:02 [place] # (Auto) 0.5 10^3/uL (0.2-0.9) 03/01/23 14:02 Eos # (Auto) 0.2 10^3/uL (0.0-0.8) 03/01/23 14:02 Baso # (Auto) 0.0 10^3/uL (0.0-0.1) 03/01/23 14:02 Nucleated RBC % (auto) 0 % 03/01/23 14:02 Nucleated RBCs # 0.0 /100WBC 03/01/23 14:02 Sodium 133 mmol/L (136-145) L 03/01/23 14:02 Potassium 3.5 mmol/L (3.5-5.1) 03/01/23 14:02 Chloride 101 mmol/L (98-107) 03/01/23 14:02 Carbon Dioxide 22 mmol/L (22-29) 03/01/23 14:02 Anion Gap 13.5 (5-19) 03/01/23 14:02 BUN 7 mg/dL (6-20) 03/01/23 14:02 Creatinine 0.7 mg/dL (0.5-0.9) 03/01/23 14:02 GFR Calculation 95.2 mL/min (90-130) 03/01/23 14:02 Glucose 97 mg/dL (65-115) 03/01/23 14:02 Calculated Osmolality 274 mOsm/kg (285-295) L 03/01/23 14:02 Calcium 9.0 mg/dL (8.5-10.5) 03/01/23 14:02 Total Bilirubin 0.5 mg/dL (0.15-1.2) 03/01/23 14:02 AST 17 U/L (0-32) 03/01/23 14:02 ALT 15 U/L (0-33) 03/01/23 14:02 Alkaline Phosphatase 59 U/L (35-105) 03/01/23 14:02 Total Protein 7.5 g/dL (6.6-8.7) 03/01/23 14:02 Albumin 4.3 g/dL (3.5-5.2) 03/01/23 14:02 Globulin 3.2 g/dL (1.3-4.6) 03/01/23 14:02 Lipase 29 U/L (13-60) 03/01/23 14:02 HCG, Qual Negative (Negative) 03/01/23 13:20 Urine Color Yellow (Yellow) 03/01/23 13:20 Urine Appearance Cloudy (CLEAR) A 03/01/23 13:20 Urine pH 5 (5-7) 03/01/23 13:20 Ur Specific [place] 1.020 (1.005-1.030) 03/01/23 13:20 Urine Protein Neg (Negative) 03/01/23 13:20 Urine Glucose (UA) Norm (Normal) 03/01/23 13:20 Urine Ketones Negative (Negative) 03/01/23 13:20 Urine Blood 2+ (Negative) H 03/01/23 13:20 Urine Nitrate Negative (Negative) 03/01/23 13:20 Urine Bilirubin Neg (Negative) 03/01/23 13:20 Urine Urobilinogen Norm mg/dL (Negative) 03/01/23 13:20 Ur Leukocyte Esterase 2+ (Negative) H 03/01/23 13:20 Urine RBC 0-4 /hpf (0-2) H 03/01/23 13:20 Urine WBC 5-10 /hpf (0-5) H 03/01/23 13:20 Ur Squamous Epith Cells 0-4 /hpf (0-5) H 03/01/23 13:20 Amorphous Sediment 4+ /hpf 03/01/23 13:20 Urine Bacteria 1+ /hpf (NONE) H 03/01/23 13:20 Group A Strep Rapid Negative (Negative) 03/01/23 13:10 All radiology interpretation(s) finalized by discharge Discharge Plan Discharge Patient Disposition: Home Clinical Impression: UTI (urinary tract infection) Qualifiers: Urinary tract infection type: acute cystitis Hematuria presence: with hematuria Qualified Code(s): N30.01 - Acute cystitis with hematuria Abdominal pain Qualifiers: Abdominal location: lower abdomen, unspecified Qualified Code(s): R10.30 - Lower abdominal pain, unspecified Condition: Stable Prescriptions: New Macrobid 100 mg capsule 100 mg PO Q12H 7 Days Qty: 14 0RF Rx Instructions: must administer with a meal/food dicyclomine 20 mg tablet 20 mg PO TID Qty: 20 0RF No Action citalopram 10 mg tablet 10 mg PO DAILY Qty: 30 3RF omeprazole 40 mg capsule,delayed release(DR/EC) 40 mg PO DAILY Qty: 30 6RF albuterol sulfate 90 mcg/actuation HFA aerosol inhaler 2 inh inhalation QID PRN (Reason: shortness of breath or wheezing) Qty: 8.5 2RF ondansetron 4 mg tablet,disintegrating 4 mg PO Q8H PRN (Reason: nausea and vomiting) Qty: 30 0RF loratadine 10 mg tablet 10 mg PO DAILY Qty: 90 3RF fluticasone propionate 50 mcg/actuation spray,suspension 2 spray intranasal BID PRN (Reason: nasal congestion) Rx Instructions: administer into each nostril Discharge Orders: Discharge ED (Routine); Ordered 03/01/23 Ordered By: Marco Dennison Referrals: Robbin Valente MD [Primary Care Provider] - Discharge Diet: Advance as tolerated Discharge Activity: Resume usual activity Patient Instructions: Abdominal Pain (ED), Opioid Safety, Pain Management Activity Restrictions/Additional Instructions: Activity Restrictions/Additional Instructions: Thank you for choosing [facility] for your healthcare needs today. Please realize that you were seen in the Emergency Department and that we are providing you with an emergency medical screening exam and this may not be a complete and all inclusive of all the testing and or medical work-up that you may need to determine your ailment or severity of your illness. It is very important that you follow-up as instructed with your Primary care provider or Specialist for additional evaluation and to discuss your medical treatment plan. You may return to the Emergency Department should you have concerns or if your condition changes or worsens in any way. Coding Level of Care Code ED [employer] for Levar Parrish
[2023-03-01 14:23] LABS: Rapid Strep A Test Negative (Negative)
[2023-03-01 14:30] LABS: HCG Qualitative Urine. Negative (Negative)
[2023-03-01 14:32] LABS: Alanine Aminotransferase 15 U/L (0-33); Albumin Level 4.3 g/dL (3.5-5.2); Alkaline Phosphatase 59 U/L (35-105); Anion Gap 13.5 (5-19); Aspartate Amino Transferase 17 U/L (0-32); Blood Urea Nitrogen 7 mg/dL (6-20); Carbon Dioxide 22 mmol/L (22-29); Chloride 101 mmol/L (98-107); Globulin 3.2 g/dL (1.3-4.6); Glomerular Filtration Rate 95.2 mL/min (90-130); Glucose 97 mg/dL (65-115); Lipase 29 U/L (13-60); Osmolality Calculated 274 mOsm/kg (285-295); Potassium 3.5 mmol/L (3.5-5.1); Sodium 133 mmol/L (136-145); Total Bilirubin 0.5 mg/dL (0.15-1.2); Total Protein 7.5 g/dL (6.6-8.7)
[2023-03-01] MEDS: sodium chloride 0.9% 1,000 ML 999 ML IV (14:43)
[2023-03-01] MEDS: iohexol 350 mg/mL 500 mL Btl (per mL) IV (15:08)
[2023-03-01 16:18] LABS: Add Urine Culture? Yes; Amorphous Sediment Urine 4+ /hpf; Bacteria Urine 1+ /hpf; Bilirubin Urine Neg (Negative); Blood Urine 2+ (Negative); Glucose Urine UA Norm (Normal); Ketones Urine Negative (Negative); Leukocyte Esterase Urine 2+ (Negative); Nitrate Urine Negative (Negative); Protein Urine Neg (Negative); RBC Urine 0-4 /hpf (0-2); Squamous Epithelial Cell Urine 0-4 /hpf (0-5); Urine Appearance Cloudy (CLEAR); Urine Color Yellow (Yellow); Urobilinogen Urine Norm (Negative); pH Urine 5 (5-7)
[2023-03-01 17:00] VITALS: PULSE 89; O2SAT 95
== END 2023-03-01 17:02 | disposition home or self-care (01) ==
PROVIDERS: Emergency Provider Internal Medicine; PCP Family Medicine
DX: N30.01 Acute cystitis with hematuria (principal); R10.30 Lower abdominal pain, unspecified; F17.290 Nicotine dependence, other tobacco product, uncomplicated
CPT/HCPCS: 74177; 80053; 81001; 81025; 83690; 85025; 87081; 87086; 87880; 96360; 96361; 99285; J7030; Q9967

== ENCOUNTER → 2023-06-30 15:40 | Outpatient (BNVA) | payer MEDICAID, SELFPAY | PROVIDERS: PCP Family Medicine; Visit Provider Family Medicine | DX: Z51.81 Encounter for therapeutic drug level monitoring (principal); R53.81 Other malaise; R53.83 Other fatigue; Z13.220 Encounter for screening for lipoid disorders; E55.9 Vitamin D deficiency, unspecified | CPT/HCPCS: 80053; 80061; 82306; 84439; 84443; 85025 ==

== ENCOUNTER 2023-07-05 11:01 | Emergency (ER) | payer MEDICAID, SELFPAY ==
--- NOTE | 2023-07-05 11:04 | XRR_ITS ---
PROCEDURE INFORMATION: Exam: XR Left Ankle Exam date and time: 07/05/2023 11:32 AM Age: 38 years old Clinical indication: Left; Patient HX: Lt ankle pain post fall; Additional info: Left ankle injury TECHNIQUE: Imaging protocol: Radiologic exam of the left ankle. Views: 3 or more views. COMPARISON: No relevant prior studies available. FINDINGS: Bones/joints: There is a calcaneal spur. There are oblique fractures through the distal fibula without significant displacement. Soft tissues: Edema and/or hematoma is present in the soft tissues adjacent to the fracture site. XR/XR ankle LT min 3V* [id number] IMPRESSION: Oblique distal fibular fractures.
[2023-07-05 11:07] VITALS: BP 143/90; PULSE 85; RESP 16; TEMP 36.9; O2SAT 99; BMI 32.9
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
[2023-07-05] MEDS: HYDROcodone-acetaminophen 10-325 mg Tablet 1 TAB PO (12:08)
== END 2023-07-05 12:59 | disposition home or self-care (01) ==
PROVIDERS: Emergency Provider Emergency Medicine; PCP Family Medicine
DX: S82.832A Other fracture of upper and lower end of left fibula, initial encounter for closed fracture (principal); F17.290 Nicotine dependence, other tobacco product, uncomplicated; V29.31XA Electric (assisted) bicycle (driver) (passenger) injured in unspecified nontraffic accident, initial encounter
CPT/HCPCS: 29515; 73610; 99283; A4590; E0114

== ENCOUNTER 2023-07-08 19:09 | Emergency (ER) | payer MEDICAID, SELFPAY ==
[2023-07-08 19:22] VITALS: BP 153/92; PULSE 88; RESP 16; TEMP 36.8; O2SAT 97
--- NOTE | 2023-07-08 19:31 | W.ED.RECABL ---
HPI - Recheck/Abnormal Lab/Rx General: Chief Complaint: Recheck/Abnormal Lab/Rx Stated Complaint: issues with cast on Left leg Time Seen by Provider: 07/08/23 19:19 Source: patient Mode of arrival: ambulatory Limitations: no limitations History of Present Illness: 38-year-old female who seen here earlier this week with a left fibula fracture she is placed in a splint she had the splint goes up to her posterior knee and is causing her pain especially with any bending is uncomfortable she wants to have her splint changed she has no other complaints this time she does see Ortho I believe next week. Review of Systems Const: Denies: fever(s), chills or change in appetite ENMT: Denies: throat pain or dental pain Card: Denies: chest pain GI: Denies: abdominal pain, nausea, vomiting or diarrhea Musc: Reports: extremity pain; Denies: neck pain or back pain Skin/Breast: Denies: rash PFSH ED PFSH: Medical History Allergic rhinitis due to allergen Sterilization consult No pertinent past medical history Surgical History Hx of tubal ligation History of tonsillectomy History of appendectomy Family History Grandmother Breast cancer Paternal Grandfather Heart disease Maternal Hypercholesteremia Denies family history of Colon cancer Ovarian cancer Uterine cancer Thyroid disease Social History Smoking and tobacco/nicotine status: current every day tobacco/nicotine user e-cigarettes E-Cigarette Details: vaporizer device Female Reproductive History: Date of last menstrual period: 07/05/23 Physical Exam Const: COMMON NORMALS: no acute distress, patient oriented x3 and healthy appearing HENMT: COMMON NORMALS: normocephalic and atraumatic HEAD & SCALP: normocephalic and atraumatic Neck/C-Spine: COMMON NORMALS: full ROM and supple Chest: COMMONS NORMALS: normal inspection of the chest Resp: COMMON NORMALS: normal respiratory effort Extremity: NARRATIVE EXTREMITY EXAM: Splint applied to her left lower leg the cast does extend right to her knee and is causing rubbing the posterior knee Neuro: COMMON NORMALS: patient oriented x3, moves all extremities and no focal motor deficits Psych: COMMON NORMALS: mental status grossly normal, Normal thought process present and cooperative THOUGHT PROCESS: Normal thought process present Skin: COMMON NORMALS: no rashes or lesions noted and no wounds GENERAL SKIN EXAM: no rashes or lesions noted Course Vital Signs: Vital signs: Vital Signs Temperature 98.3 F 07/08/23 19:22 Pulse Rate 88 07/08/23 19:22 Respiratory Rate 16 07/08/23 19:22 Blood Pressure 153/92 07/08/23 19:22 Pulse Oximetry 97 07/08/23 19:22 Oxygen Delivery Me thod Room Air 07/08/23 19:22 MDM - Recheck/Abnormal Lab/Rx Medical Decision Making Patient presents here with discomfort with her splint I did remove the splint here ankles benign has some bruising no signs of compartment syndrome will reapply splint here she is follow-up with Ortho. No radiology studies performed this visit Discharge Plan Discharge Patient Disposition: Home Clinical Impression: Aftercare for cast or splint check or change Left fibular fracture Qualifiers: Encounter type: subsequent encounter Condition: Stable Prescriptions: No Action multivitamin Tablet 1 tab PO DAILY Niacin PO Niacin PO [place] 3 fatty acid PO citalopram 20 mg tablet 20 mg PO DAILY Qty: 90 2RF cyproheptadine 4 mg tablet 4 mg PO .QHS Qty: 90 3RF omeprazole 40 mg capsule,delayed release(DR/EC) 40 mg PO DAILY Qty: 90 3RF loratadine 10 mg tablet 10 mg PO DAILY Qty: 90 3RF albuterol sulfate 90 mcg/actuation HFA aerosol inhaler 2 inh inhalation QID PRN (Reason: shortness of breath or wheezing) Qty: 8.5 2RF fluticasone propionate 50 mcg/actuation spray,suspension 2 spray intranasal BID PRN (Reason: nasal congestion) Rx Instructions: administer into each nostril tramadol 50 mg tablet 50 mg PO Q8H PRN (Reason: pain) Qty: 20 0RF Discharge Orders: Discharge ED (Routine); Ordered 07/08/23 Ordered By: Hadley Dia Referrals: Robbin Valente MD [Primary Care Provider] - Discharge Diet: Advance as tolerated Discharge Activity: Resume usual activity Patient Instructions: Splint Care (ED) Coding Level of Care Code 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
[2023-07-08 20:08] VITALS: PULSE 71; RESP 14; O2SAT 100
== END 2023-07-08 20:09 | disposition home or self-care (01) ==
PROVIDERS: Emergency Provider Emergency Medicine; PCP Family Medicine
DX: Z46.89 Encounter for fitting and adjustment of other specified devices (principal); Z47.89 Encounter for other orthopedic aftercare; S82.402D Unspecified fracture of shaft of left fibula, subsequent encounter for closed fracture with routine healing; F17.290 Nicotine dependence, other tobacco product, uncomplicated; X58.XXXD Exposure to other specified factors, subsequent encounter
CPT/HCPCS: 29515; 99283

== ENCOUNTER 2023-07-10 15:55 | Outpatient (CLI) | payer MEDICAID, SELFPAY ==
--- NOTE | 2023-07-10 16:01 | XRR_ITS ---
PROCEDURE INFORMATION: Exam: XR Left Tibia and Fibula Exam date and time: 07/10/2023 4:11 PM Age: 38 years old Clinical indication: Pain; Ankle and lower leg; Left; Additional info: Left leg pain, known fibular fracture TECHNIQUE: Imaging protocol: Radiologic exam of the left tibia and fibula. Views: 2 views. COMPARISON: CR XR ankle LT min 3V* [id number] 07/10/2023 4:11 PM FINDINGS: Bones/joints: Redemonstrated oblique distal fibular fractures, minimally displaced on lateral view and slightly more pronounced on prior comparison. No new fracture. Soft tissues: Obscured by overlying casting. XR/XR tibia fibula LT 2V [id number] IMPRESSION: There may be slightly increased displacement of the distal fibular fractures versus differences in technique/positioning from comparison.
--- NOTE | 2023-07-10 16:01 | XRR_ITS ---
PROCEDURE INFORMATION: Exam: XR Left Ankle Exam date and time: 07/10/2023 4:11 PM Age: 38 years old Clinical indication: Pain; Ankle and lower leg; Left; Additional info: Fall, known distal fibula fracture TECHNIQUE: Imaging protocol: Radiologic exam of the left ankle. Views: 3 or more views. COMPARISON: CR (LOW EXM, ) 07/05/2023 11:32 AM FINDINGS: Bones/joints: Redemonstrated oblique distal fibular fractures, minimally displaced on lateral view and slightly more pronounced on prior comparison. No new fracture. Soft tissues: Obscured by overlying casting. XR/XR ankle LT min 3V* [id number] IMPRESSION: There may be slightly increased displacement of the distal fibular fractures versus differences in technique/positioning from comparison.
== END 2023-07-10 15:56 | disposition home or self-care (01) ==
LOC: RAD 15:55
PROVIDERS: PCP Family Medicine; Visit Provider Family Medicine
DX: S82.402A Unspecified fracture of shaft of left fibula, initial encounter for closed fracture (principal); M79.605 Pain in left leg; W19.XXXA Unspecified fall, initial encounter
CPT/HCPCS: 73590; 73610

== ENCOUNTER → 2023-07-14 10:01 | Outpatient (BNVA) | payer MEDICAID, SELFPAY | PROVIDERS: PCP Family Medicine; Visit Provider Student in an Organized Health Care Education/Training Program | DX: S82.832A Other fracture of upper and lower end of left fibula, initial encounter for closed fracture; V28.01XA Electric (assisted) bicycle driver injured in noncollision transport accident in nontraffic accident, initial encounter; Y93.55 Activity, bike riding | CPT/HCPCS: 73610 ==

== ENCOUNTER → 2023-07-28 11:01 | Outpatient (BNVA) | payer MEDICAID, SELFPAY | PROVIDERS: PCP Family Medicine; Visit Provider Student in an Organized Health Care Education/Training Program | DX: X58.XXXA Exposure to other specified factors, initial encounter; S82.832A Other fracture of upper and lower end of left fibula, initial encounter for closed fracture | CPT/HCPCS: 73610 ==

== ENCOUNTER → 2023-08-11 15:29 | Outpatient (BNVA) | payer MEDICAID, SELFPAY | PROVIDERS: PCP Family Medicine; Visit Provider Physician Assistant | DX: S82.832D Other fracture of upper and lower end of left fibula, subsequent encounter for closed fracture with routine healing; X58.XXXD Exposure to other specified factors, subsequent encounter | CPT/HCPCS: 73610 ==

== ENCOUNTER → 2023-09-02 18:28 | Outpatient (BNVA) | payer MEDICAID, SELFPAY | PROVIDERS: PCP Family Medicine; Visit Provider Registered Nurse Neonatal Intensive Care | DX: J02.9 Acute pharyngitis, unspecified (principal) | CPT/HCPCS: 87071; 87880 ==

== ENCOUNTER → 2023-09-08 10:27 | Outpatient (BNVA) | payer MEDICAID, SELFPAY | PROVIDERS: PCP Family Medicine; Visit Provider Student in an Organized Health Care Education/Training Program | DX: S82.832D Other fracture of upper and lower end of left fibula, subsequent encounter for closed fracture with routine healing; X58.XXXD Exposure to other specified factors, subsequent encounter | CPT/HCPCS: 73610 ==

== ENCOUNTER → 2024-08-31 15:03 | Outpatient (BNVA) | payer MEDICAID, SELFPAY | PROVIDERS: PCP Family Medicine; Visit Provider Nurse Practitioner | DX: R06.2 Wheezing (principal); R09.89 Other specified symptoms and signs involving the circulatory and respiratory systems | CPT/HCPCS: 71046 ==

== ENCOUNTER → 2024-09-06 15:36 | Outpatient (BNVA) | payer MEDICAID, SELFPAY | PROVIDERS: PCP Family Medicine; Visit Provider Family Medicine | DX: Z00.00 Encounter for general adult medical examination without abnormal findings (principal); N92.6 Irregular menstruation, unspecified; R53.81 Other malaise; R53.83 Other fatigue; Z51.81 Encounter for therapeutic drug level monitoring; E55.9 Vitamin D deficiency, unspecified | CPT/HCPCS: 80053; 82306; 82670; 83001; 84443; 85025 ==

== ENCOUNTER 2024-12-06 15:43 | Emergency (ER) | payer MEDICAID, SELFPAY ==
[2024-12-06 15:49] VITALS: BP 145/102; PULSE 95; RESP 17; TEMP 36.9; O2SAT 99; BMI 33.8
--- NOTE | 2024-12-06 15:53 | XR_ITS ---
WS: [id number] XR chest 2V* [id number] REASON FOR EXAM: CONGESTION FINDINGS: Chest is unchanged compared to 08/31/2024. The heart and the mediastinum are within normal limits. Calcified granulomatous disease in both hemithoraces. No acute pulmonary parenchymal or pleural abnormality. No significant abnormality of the bony thorax. XR/XR chest 2V* [id number] IMPRESSION: Stable chest without acute abnormality.
[2024-12-06 17:13] LABS: Hematocrit 38.2 % (36-47); Hemoglobin 13.20 g/dL (11.27-16.99); Mean Corpuscular HGB Conc 34.6 g/dL (30-55); Mean Corpuscular Hemoglobin 28.5 pg (27-33); Mean Corpuscular Volume 82.5 fl (85-98); Nucleated Red Blood Cells % 0 %; Platelet Count 305 10^3/cmm (157-399); Red Blood Count 4.63 10^6/uL (3.85-5.65); White Blood Count 8.20 10^3/uL (3.29-11.43)
[2024-12-06 17:30] LABS: Alanine Aminotransferase 16 U/L (0-33); Albumin Level 4.4 g/dL (3.5-5.2); Alkaline Phosphatase 55 U/L (35-105); Anion Gap 16.5 (5-19); Aspartate Amino Transferase 15 U/L (0-32); Blood Urea Nitrogen 7 mg/dL (6-20); Calcium 9.2 mg/dL (8.5-10.5); Carbon Dioxide 23 mmol/L (22-29); Chloride 101 mmol/L (98-107); Creatinine Clr Calc Pharmacy 96.7093; Globulin 3.2 g/dL (1.3-4.6); Glucose 106 mg/dL (65-115); Osmolality Calculated 282 mOsm/kg (285-295); Potassium 3.5 mmol/L (3.5-5.1); Sodium 137 mmol/L (136-145); Total Protein 7.6 g/dL (6.6-8.7)
[2024-12-06] MEDS: alum-mag-hydroxide-sime 30 mL UDC PO (19:34)
[2024-12-06] MEDS: diphenhydrAMINE 50 mg/mL SDV 1mL 25 MG IVP (19:35)
[2024-12-06] MEDS: ondansetron 2 mg/ML SDV 2 mL 4 MG IVP (19:35)
[2024-12-06] MEDS: pantoprazole 40 mg SDV IVP (19:35)
--- NOTE | 2024-12-06 20:01 | ED_ITS ---
HPI - Nausea/Vomiting/Diarrhea 2 General: Chief complaint: Nausea/Vomiting/Diarrhea Stated complaint: sick [id number] Time Seen by Provider: 12/06/24 17:35 History of Present Illness: Patient presenting for about a 10-day to 14-day history of persistent symptoms and including nasal congestion, postnasal drip, subjective malaise, was initially seen and prescribed a Z-Jovani, was on that for 5 days with a course of prednisone and started to feel better had about 80% improvement of symptoms but over the weekend started to have recurrence of same symptoms, was seen in urgent care and started doxycycline and prednisone earlier today, shortly after taking his medication she developed some abdominal pain as well as vomiting of what she thought was coffee-ground emesis prompting her evaluation to the ER. She has had some mild diarrhea without any black or bloody stools, no diamond blood in the vomit, no fevers or chills, minimal cough. Related Data Home Medications ?Medication ?Instructions ?Recorded ?Confirmed Niacin PO 06/30/23 12/06/24 [place] 3 fatty acid PO 06/30/23 12/06/24 multivitamin 1 tab PO DAILY 06/30/2311/21 fexofenadine 60 mg tablet ([place] 60 mg PO BID 12/06/24 Allergy) magnesium glycinate mg PO 06/19/24 12/06/24 olopatadine 0.2 % eye drops 1 drp ophthalmic (eye) CLARE LY 08/31/24 12/06/24 (Pataday Once Daily Relief) Previous Rx's ?Medication ?Instructions ?Recorded Knee scooter walker with wheels #1 ea 07/09/23 cam boot #1 ea 07/14/23 Lace Up Ankle Brace #1 ea 08/11/23 albuterol sulfate 90 mcg/actuation 2 inh inhalation QI D PRN shortness 05/17/24 aerosol inhaler of breath or wheezing #8.5 g feliz albuterol sulfate 2.5 mg/3 mL 2.5 mg (3 mL) inhalation Q4H PRN 06/19/24 (0.083 %) solution for nebulization shortness of breat h or wheezing #90 mL citalopram 20 mg tablet 20 mg PO DAILY #90 tabs 0504/16 omeprazole 40 mg capsule,delayed 40 mg PO DAILY #90 ca ps 07/21/24 release loratadine 10 mg tablet 10 mg PO DAILY allergy sympt oms 09/19/24 #90 tabs aluminum-mag hydroxide-simethicone 10 ml PO QID PRN in digestion 7 12/06/24 400 mg-400 mg-40 mg/5 mL oral susp days #200 mL (Maalox Maximum Strength) [id number]-ahjyoqubveytqiu-OL 5 ml PO Q6H PRN col d symptoms #118 12/06/24 2 mg-30 mg-10 mg/5 mL oral syrup mL (Bromfed DM) doxycycline hyclate 100 mg tablet 100 mg PO BID 7 days #14 tabs 12/06/24 famotidine 20 mg tablet (Pepcid) 20 mg PO BID 7 days # 14 tabs 12/06/24 prednisone 10 mg tablet 30 mg (3 x 10 mg) PO DAILY 5 days 12/06/24 #15 tabs Allergies Allergy/AdvReac Type Severity Reaction Status Date / Time morphine Allergy Mild ADR-Anxiety Verified 12/06/24 12:44 Penicillins Allergy ALGY-Rash Verified 12/06/24 12:44 PFSH ED 2 PFSH: Medical History Allergic rhinitis due to allergen Sterilization consult No pertinent past medical history Surgical History Hx of tubal ligation History of tonsillectomy History of appendectomy Family History Grandmother Breast cancer Paternal Grandfather Heart disease Maternal Hypercholesteremia Denies family history of Colon cancer Ovarian cancer Uterine cancer Thyroid disease Social History Smoking and tobacco/nicotine status: never used tobacco/nicotine Physical Exam 2 Narrative: EXAM NARRATIVE: Gen: A&Ox4, no acute distress, nontoxic appearing HEENT: Normocephalic, atraumatic, no scleral icterus, external ears normal, moist mucous membranes, nasal turbinates erythematous bilaterally, bilateral tympanic membranes without bulging effusion or erythema Neck: Supple, full range of motion, no observable masses Lungs: No Respiratory distress, Lungs clear to auscultation bilaterally no rales, rhonchi, wheezing CV: Regular rate and rhythm, no murmur, no pitting edema to lower extremities bilaterally Abdomen: Soft, nondistended, nontender to palpation, specifically no tenderness palpation of the right upper quadrant MSK: No joint swelling, FROM all 4 extremities Skin: No rashes, petechiae, lesions. Normal color per patient. Neuro: Alert and oriented, no slurred speech, sensation and strength grossly intact all 4 extremities Psych: Appropriate for situation. Course 2 Vital Signs: Vital signs: Vital Signs Temperature 98.5 F 12/06/24 15:49 Pulse Rate 95 12/06/24 15:49 Respiratory Rate 17 12/06/24 15:49 Blood Pressure 145/102 12/06/24 15:49 Pulse Oximetry 99 12/06/24 15:49 Oxygen Delivery Me thod Room Air 12/06/24 15:49 MDM - Nausea/Vomiting/Diarrhea Medical Decision Making 39-year-old female presenting the emergency department with a 2-week history of nasal type URI symptoms, initially had a period of marked improvement followed by worsening, now with new symptoms of abdominal pain and vomiting of possible coffee ground emesis after starting a second course of steroids and a different antibiotic today by urgent care. She showed me a photo which does not appear consistent with coffee-ground emesis, her hemoglobin is stable, she has no white count, her comprehensive metabolic panel does not demonstrate any evidence of abnormality within the liver or any NORA/electrolyte derangements other than borderline hypokalemia, will recommend Pepcid, Maalox at home, discontinue steroids and antibiotic for suspected iatrogenic gastritis, continue Flonase and antihistamines, continue monitoring for any purulent drainage or fever which would necessitate antibiotics for bacterial rhinosinusitis which does not appear to be present currently, return if abdominal symptoms worsen. Lab Data Labs with no leukocytosis, no anemia, no NORA, normal electrolytes, 12/06/24 16:56 12/06/24 16:56 Radiology Impressions Chest X-Ray 12/06/24 15:53 IMPRESSION: Stable chest without acute abnormality. Laboratory Results WBC 8.20 10^3/uL (3.29-11.43) 12/06/24 16:56 RBC 4.63 10^6/uL (3.85-5.65) 12/06/24 16:56 Hgb 13.20 g/dL (11.27-16.99) 12/06/24 16:56 Hct 38.2 % (36-47) 12/06/24 16:56 MCV 82.5 fl (85-98) L 12/06/24 16:56 MCH 28.5 pg (27-33) 12/06/24 16:56 MCHC 34.6 g/dL (30-55) 12/06/24 16:56 RDW 11.9 % (12.1-15.1) L 12/06/24 16:56 Plt Count 305 10^3/cmm (157-399) 12/06/24 16:56 MPV 8.6 fL (7.4-10.4) 12/06/24 16:56 Neut % (Auto) 84.2 % 12/06/24 16:56 Lymph % (Auto) 10.2 % 12/06/24 16:56 Christian % (Auto) 3.2 % 12/06/24 16:56 Eos % (Auto) 1.0 % 12/06/24 16:56 Baso % (Auto) 0.4 % 12/06/24 16:56 Neut # (Auto) 6.91 10^3/uL (1.8-7.7) 12/06/24 16:56 Lymph # (Auto) 0.8 10^3/uL (0.8-4.8) 12/06/24 16:56 Christian # (Auto) 0.3 10^3/uL (0.2-0.9) 12/06/24 16:56 Eos # (Auto) 0.1 10^3/uL (0.0-0.8) 12/06/24 16:56 Baso # (Auto) 0.0 10^3/uL (0.0-0.1) 12/06/24 16:56 Nucleated RBC % (auto) 0 % 12/06/24 16: Nucleated RBCs # 0.0 /100WBC 12/06/24 16:56 Sodium 137 mmol/L (136-145) 12/06/24 16:56 Potassium 3.5 mmol/L (3.5-5.1) 12/06/24 16:56 Chloride 101 mmol/L (98-107) 12/06/24 16:56 Carbon Dioxide 23 mmol/L (22-29) 12/06/24 16:56 Anion Gap 16.5 (5-19) 12/06/24 16:56 BUN 7 mg/dL (6-20) 12/06/24 16:56 Creatinine 0.8 mg/dL (0.5-0.9) 12/06/24 16:56 GFR Calculation 80.7 mL/min (90-130) L 12/06/24 16:56 Glucose 106 mg/dL (65-115) 12/06/24 16:56 Calculated Osmolality 282 mOsm/kg (285-295) L 12/06/24 16:56 Calcium 9.2 mg/dL (8.5-10.5) 12/06/24 16:56 Total Bilirubin 0.5 mg/dL (0.15-1.2) 12/06/24 16:56 AST 15 U/L (0-32) 12/06/24 16:56 ALT 16 U/L (0-33) 12/06/24 16:56 Alkaline Phosphatase 55 U/L (35-105) 12/06/24 16:56 Total Protein 7.6 g/dL (6.6-8.7) 12/06/24 16:56 Albumin 4.4 g/dL (3.5-5.2) 12/06/24 16:56 Globulin 3.2 g/dL (1.3-4.6) 12/06/24 16:56 All radiology interpretation(s) finalized by discharge ED provider radiology interpretation(s): Chest x-ray negative for bacterial pneumonia Discharge Plan Discharge Patient Disposition: Home Clinical Impression: Steroid-induced gastritis URI (upper respiratory infection) Qualifiers: URI type: unspecified viral URI Qualified Code(s): J06.9 - Acute upper respiratory infection, unspecified Condition: Stable Prescriptions: New famotidine [Pepcid] 20 mg tablet 20 mg PO BID 7 Days Qty: 14 0RF alum-mag hydroxide-simeth [Maalox Maximum Strength] 400-400-40 mg/5 mL suspension 10 ml PO QID PRN (Reason: indigestion) 7 Days Qty: 200 0RF No Action multivitamin Tablet 1 tab PO DAILY Niacin PO [place] 3 fatty acid PO olopatadine [Pat[place] Once Daily Relief] 0.2 % drops 1 drp ophthalmic (eye) DAILY prednisone 10 mg tablet 30 mg PO DAILY 5 Days Qty: 15 0RF [id number]-etydgpmet-KC [Bromfed DM] 2-30-10 mg/5 mL syrup 5 ml PO Q6H PRN (Reason: cold symptoms) Qty: 118 0RF doxycycline hyclate 100 mg tablet 100 mg PO BID 7 Days Qty: 14 0RF (DME) cam boot See Rx Instructions .Route .MEDSUPPLY Qty: 1 0RF Rx Instructions: As directed (DME) Knee scooter walker with wheels See Rx Instructions .Route .MEDSUPPLY Qty: 1 0RF Rx Instructions: As directed (DME) Lace Up Ankle Brace See Rx Instructions .Route .MEDSUPPLY Qty: 1 0RF Rx Instructions: As directed fexofenadine [[place] Allergy] 60 mg tablet 60 mg PO BID magnesium glycinate 100 mg magnesium capsule PO albuterol sulfate 2.5 mg /3 mL (0.083 %) solution for nebulization 2.5 mg inhalation Q4H PRN (Reason: shortness of breath or wheezing) Qty: 90 0RF albuterol sulfate 90 mcg/actuation HFA aerosol inhaler 2 inh inhalation QID PRN (Reason: shortness of breath or wheezing) Qty: 8.5 2RF citalopram 20 mg tablet 20 mg PO DAILY Qty: 90 2RF omeprazole 40 mg capsule,delayed release(DR/EC) 40 mg PO DAILY Qty: 90 3RF loratadine 10 mg tablet 10 mg PO DAILY Qty: 90 3RF Discharge Orders: Discharge ED (Routine); Ordered 12/06/24 Ordered By: Sky Campos Referrals: Robbin Valente MD [Primary Care Provider, Family Practice] Patient Instructions: Patient Portal & Mikala Instructions, Gastritis (DC), Upper Respiratory Infection (ED) Print Language: Kiswahili Coding Level of Care Code ED Maintenance Specialist for Levar Parrish
[2024-12-06 20:20] VITALS: BP 122/86; PULSE 77; RESP 16; O2SAT 100
== END 2024-12-06 20:23 | disposition home or self-care (01) ==
PROVIDERS: Family Medicine; Emergency Provider Student in an Organized Health Care Education/Training Program; PCP Family Medicine
DX: K29.60 Other gastritis without bleeding (principal); J06.9 Acute upper respiratory infection, unspecified
CPT/HCPCS: 36415; 71046; 80053; 85025; 87400; 87426; 96361; 96374; 96375; 99284; J1100; J1200; J2405; J2470; J7030; J9999

== ENCOUNTER → 2024-12-15 08:08 | Outpatient (BNVA) | payer MEDICAID, SELFPAY | PROVIDERS: PCP Family Medicine; Visit Provider Family Medicine | DX: K52.9 Noninfective gastroenteritis and colitis, unspecified (principal) | CPT/HCPCS: 87045; 87177; 87209; 87427; 87449 ==